=== PATIENT | female | born 1930 | race Caucasian/White ===

== ENCOUNTER 2016-11-25 11:10 | Outpatient (CLI) | payer OTHER ==
--- NOTE | 2016-11-25 11:31 | DIAGNOSTIC IMAGING REPORT ---
PROCEDURE: XR CHEST 2 VIEW INDICATION: COUGH, INFLUENZA, history of breast cancer TECHNIQUE: Two views. COMPARISON: 08/11/2012 FINDINGS: The cardiomediastinal contour is stable. The heart size is normal and there is a large hiatal hernia present. No central vascular congestion. Mild atelectatic changes seen posteriorly around the hiatal hernia. No acute consolidations, pleural effusion, or pneumothorax. Moderate levoscoliosis of the lower thoracic spine. Surgical changes in the right chest wall of prior partial mastectomy. IMPRESSION: 1. No evidence of acute cardiopulmonary disease. 2. Chronic large hiatal hernia. 3. Partial right mastectomy changes.
== END 2016-11-25 23:00 ==
LOC: XR SRH 11:10
DX: R05 Cough (principal); J10.1 Influenza due to other identified influenza virus with other respiratory manifestations; K44.9 Diaphragmatic hernia without obstruction or gangrene; Z85.3 Personal history of malignant neoplasm of breast